=== PATIENT | male | born 1975 | race Hispanic/Latino ===

== ENCOUNTER 2018-05-05 10:02 | Emergency (ER) | payer OTHER ==
[2018-05-05 11:19] LABS: BASOPHILS % (AUTO) 0.7 % (0.0-5.0); EOSINOPHILS % (AUTO) 1.4 % (0.0-8.0); HEMATOCRIT 48.4 % (42-54); LYMPHOCYTES % (AUTO) 18.8 % (21.0-51.0); MEAN CORPUSCULAR HGB CONC 33.7 g/dL (32.0-36.0); MEAN CORPUSCULAR VOLUME 89.2 fL (79-99); MONOCYTES % (AUTO) 8.4 % (3.0-13.0); NEUTROPHILS % (AUTO) 70.7 % (40.0-77.0); PLATELET COUNT (AUTO) 218 K/uL (130-400); RED BLOOD CELL COUNT(AUTO) 5.43 MIL/uL (4.50-6.20); RED CELL DISTRIBUTION WIDTH 13.6 % (11.0-15.5); WHITE BLOOD COUNT (AUTO) 9.9 K/uL (4.8-10.8)
[2018-05-05 11:30] LABS: CREATININE 0.9 mg/dL (0.5-1.5); POTASSIUM 4.3 mmol/L (3.5-5.1)
[2018-05-05 11:35] LABS: ALBUMIN 4.2 g/dL (3.5-5.0); BILIRUBIN,TOTAL 0.6 mg/dL (0.2-1.0); TOTAL PROTEIN, SERUM 8.3 g/dL (6.0-8.3)
[2018-05-05] MEDS ORDERED: ACETAMINOPHEN EXTRA STRENGTH 500 MG TABLET ONE (12:10)
[2018-05-05] MEDS ORDERED: BENZONATATE 100 MG CAPSULE PO ONE (12:10)
[2018-05-05] MEDS ORDERED: ONDANSETRON HCL 4 MG/2 ML VIAL ONE (12:15)
[2018-05-05] MEDS ORDERED: SODIUM CHLORIDE 0.9% 1000ML 1,000 ML IV ONE (12:16)
[2018-05-05] MEDS ORDERED: FAMOTIDINE/PF 20 MG/2 ML VIAL IV ONE (12:16)
== END 2018-05-05 15:16 | disposition home or self-care (01) ==
LOC: EDH 10:02
DX: B34.9 Viral infection, unspecified (principal); R51 Headache; M79.10 Myalgia, unspecified site; H92.09 Otalgia, unspecified ear
CPT/HCPCS: 36415; 71045; 80053; 84484 ×2; 85025; 87804 ×2; 93005 ×2; 96374; 96375; 99284; J2405; J3490; J7030

== ENCOUNTER 2018-08-15 15:16 | Inpatient (IN) | payer SELFPAY ==
[~2018-08-15] VITALS: Ht 170.2 cm; Wt 104.4 kg
[2018-08-15] MEDS ORDERED: ONDANSETRON HCL 4 MG/2 ML VIAL ONE (15:49)
[2018-08-15] MEDS ORDERED: MORPHINE SULFATE 4 MG/1ML SYG ONE (15:49)
[2018-08-15 15:58] LABS: APPEARANCE,URINE Clear (CLEAR); BILIRUBIN,URINE Negative (NEGATIVE); COLOR,URINE Orange (YELLOW); GLUCOSE, URINE (UA) Negative (NEGATIVE); KETONES,URINE Negative (NEGATIVE); LEUKOCYTE ESTERASE ,URINE Negative (NEGATIVE); NITRATE,URINE Negative (NEGATIVE); OCCULT BLOOD,URINE Trace (NEGATIVE); PH,URINE 6.5 (5.0-8.0); PROTEIN,URINE Negative (NEGATIVE)
[2018-08-15 16:07] LABS: CREATININE 0.9 mg/dL (0.5-1.5); POTASSIUM 3.7 mmol/L (3.5-5.1)
[2018-08-15 16:09] LABS: WBC,URINE 0-1 /HPF (0-1)
[2018-08-15 16:12] LABS: ALBUMIN 4.1 g/dL (3.5-5.0); BILIRUBIN,TOTAL 0.8 mg/dL (0.2-1.0); TOTAL PROTEIN, SERUM 8.1 g/dL (6.0-8.3)
[2018-08-15 16:12] LABS: BACTERIA,URINE Rare /HPF (None Seen); SQUAMOUS EPITHELIAL CELL,UR Rare /HPF (0-2)
[2018-08-15 16:13] LABS: MUCUS,URINE Few LPF (None Seen)
[2018-08-15 16:14] LABS: BASOPHILS % (AUTO) 0.8 % (0.0-5.0); EOSINOPHILS % (AUTO) 0.5 % (0.0-8.0); HEMATOCRIT 47.1 % (42-54); LYMPHOCYTES % (AUTO) 17.5 % (21.0-51.0); MEAN CORPUSCULAR HEMOGLOBIN 30.2 pg (27.0-33.0); MEAN CORPUSCULAR HGB CONC 34.3 g/dL (32.0-36.0); MEAN CORPUSCULAR VOLUME 87.9 fL (79-99); MONOCYTES % (AUTO) 10.4 % (3.0-13.0); NEUTROPHILS % (AUTO) 70.8 % (40.0-77.0); PLATELET COUNT (AUTO) 230 K/uL (130-400); RED BLOOD CELL COUNT(AUTO) 5.35 MIL/uL (4.50-6.20); RED CELL DISTRIBUTION WIDTH 14.3 % (11.0-15.5); WHITE BLOOD COUNT (AUTO) 9.2 K/uL (4.8-10.8)
[2018-08-15] MEDS ORDERED: KETOROLAC TROMETHAMINE 15MG/ML ONE (17:42)
[2018-08-15] MEDS ORDERED: ASPIRIN 325 MG TABLET ONE (18:34)
[2018-08-15] MEDS: SODIUM CHLORIDE 0.9% 1000ML 1,000 ML IV SCH (19:01)
[2018-08-15] MEDS ORDERED: MORPHINE SULFATE 2 MG/ML 1ML SYG IV PRN (19:15)
[2018-08-15] MEDS ORDERED: NITROGLYCERIN 0.4 MG SL TAB SL PRN (19:15)
[2018-08-15] MEDS ORDERED: ONDANSETRON HCL 4 MG/2 ML VIAL IV PRN (19:15)
[2018-08-15 19:22] LABS: CHOLESTEROL 99 mg/dL (<200); HDL CHOLESTEROL 81 mg/dL (29-71); LDL DIRECT 24 mg/dL (0-99); LIPASE 166 U/L (114-286); TRIGLYCERIDES 414 mg/dL (30-200)
[2018-08-15] MEDS ORDERED: MORPHINE SULFATE 2 MG/ML 1ML SYG ONE (20:34)
[2018-08-15] MEDS ORDERED: METRONIDAZOLE 500MG/100ML BAG 100 ML ONE (20:34)
[2018-08-15] MEDS ORDERED: METOPROLOL TARTRATE 25 MG TAB ONE (20:34)
[2018-08-15] MEDS ORDERED: FAMOTIDINE/PF 20 MG/2 ML VIAL IV ONE (20:34)
[2018-08-15] MEDS ORDERED: SODIUM CHLORIDE 0.9% 1000ML 1,000 ML IV ONE (20:35)
[2018-08-15] MEDS: METOPROLOL TARTRATE 25 MG TAB PO SCH (21:00)
[2018-08-15] MEDS: FAMOTIDINE/PF 20 MG/2 ML VIAL IV SCH (21:00)
[2018-08-15] MEDS: METRONIDAZOLE 500MG/100ML BAG 100 ML IV SCH (22:00)
[2018-08-16] VITALS (7 sets, daily range): BP systolic 141–161; BP diastolic 89–106
[2018-08-16 00:06] LABS: TROPONIN I 0.06 ng/mL (0.00-0.06)
--- NOTE | 2018-08-16 01:45 | NUR ---
ADMIT PT ADMITTED TO ROOM 331, AAOX3. ASSESSMENT DONE, PLEASE REFER TO CHART. ADMISSION CARE DONE. ADMISSION DATA BASE COMPLETED. CONTINUED IVF FROM ER, REGULATED AT 100CC/HR. PLACED PT ON CLEAR LIQUID DIET. ORIENTED TO ROOM AND UNIT. INSTRUCTED ON STOOL COLLECTION. PT VERBALIZES UNDERSTANDING. IN FOR MORE CARE AND MANAGEMENT. Addendum: 08/16/18 at 0248 by YVONNE PEDERSEN RN RN Amended: Links added.
[2018-08-16 05:50] LABS: TROPONIN I 0.07 ng/mL (0.00-0.06)
[2018-08-16] MEDS: METRONIDAZOLE 500MG/100ML BAG 100 ML IV SCH ×3 (06:17→22:10)
[2018-08-16] MEDS: SODIUM CHLORIDE 0.9% 1000ML 1,000 ML IV SCH ×2 (06:17→15:13)
--- NOTE | 2018-08-16 06:17 | NUR ---
MEDS PT RESTING IN BED. CLAIMS OF MILD PAINS TO HIS ABDOMEN BUT DENIES NEED FOR PAIN MEDICATION AT THIS TIME. DUE MEDS ADMINISTERED. KEPT RESTED AND COMFORTABLE IN BED. FOR MORE CARE.
[2018-08-16] MEDS ORDERED: PHARMACY COMMUNICATION MISC SCH (08:00)
[2018-08-16] MEDS: FAMOTIDINE/PF 20 MG/2 ML VIAL IV SCH ×2 (09:30→20:10)
[2018-08-16] MEDS: ASPIRIN 325 MG TABLET PO SCH (09:30)
[2018-08-16] MEDS: FENOFIBRATE NANOCRYSTALLIZED 48 MG TAB PO SCH (09:30)
[2018-08-16] MEDS: METOPROLOL TARTRATE 25 MG TAB PO SCH ×2 (09:30→20:10)
[2018-08-16] MEDS: ENOXAPARIN SODIUM 40 MG/0.4 ML SYRINGE SQ SCH (09:39)
[2018-08-16 11:31] LABS: TROPONIN I 0.07 ng/mL (0.00-0.06)
[2018-08-16] MEDS ORDERED: MAG HYDROX/AL HYDROX/SIMETH ES 30 ML SUSP UDCUP PO PRN (14:30)
--- NOTE | 2018-08-16 17:32 | NUR ---
DCP CM met with pt discussed dc plans. Pt is independent prior to admission, lives at home with spouse. Denies any equipments/services. Pt feels safe to go back home, still drives, spouse able to assist with transportation and needs as necessary. DC plan to home once stable. CM to cont to follow up. Addendum: 08/16/18 at 1733 by ESAU BELTRAN LVN CM Amended: Links added.
[2018-08-16] MEDS ORDERED: ACETAMINOPHEN 325 MG TAB PO PRN ×2 (22:00)
[2018-08-16] MEDS ORDERED: HYDRALAZINE HCL 20 MG/ML VIAL IV PRN (23:30)
[2018-08-16] MEDS ORDERED: HYDRALAZINE HCL 20 MG/ML VIAL ONE (23:35)
--- NOTE | 2018-08-16 23:45 | NUR ---
High blood pressure Informed Waldo Gomez NP regarding elevated blood pressure. He ordered PRN hydralazine. will monitor patient closely
[2018-08-17 03:10] VITALS: BP 152/92
[2018-08-17 05:14] LABS: BASOPHILS % (AUTO) 0.6 % (0.0-5.0); EOSINOPHILS % (AUTO) 4.9 % (0.0-8.0); HEMATOCRIT 37.9 % (42-54); LYMPHOCYTES % (AUTO) 27.4 % (21.0-51.0); MEAN CORPUSCULAR HEMOGLOBIN 30.4 pg (27.0-33.0); MEAN CORPUSCULAR HGB CONC 34.2 g/dL (32.0-36.0); MEAN CORPUSCULAR VOLUME 89.1 fL (79-99); MONOCYTES % (AUTO) 9.1 % (3.0-13.0); NUCLEATED RED BLOOD CELLS 0.1 % (0.0-0.19); PLATELET COUNT (AUTO) 155 K/uL (130-400); RED BLOOD CELL COUNT(AUTO) 4.25 MIL/uL (4.50-6.20); RED CELL DISTRIBUTION WIDTH 14.1 % (11.0-15.5); WHITE BLOOD COUNT (AUTO) 8.2 K/uL (4.8-10.8)
[2018-08-17] MEDS: SODIUM CHLORIDE 0.9% 1000ML 1,000 ML IV SCH ×2 (05:30→11:01)
[2018-08-17] MEDS: METRONIDAZOLE 500MG/100ML BAG 100 ML IV SCH ×3 (05:30→21:27)
[2018-08-17 08:00] VITALS: BP 151/99
[2018-08-17] MEDS: METOPROLOL TARTRATE 25 MG TAB PO SCH ×2 (09:16→21:27)
[2018-08-17] MEDS: FAMOTIDINE/PF 20 MG/2 ML VIAL IV SCH ×2 (09:16→21:27)
[2018-08-17] MEDS: FENOFIBRATE NANOCRYSTALLIZED 48 MG TAB PO SCH (09:16)
[2018-08-17] MEDS: ASPIRIN 325 MG TABLET PO SCH (09:16)
[2018-08-17] MEDS: ENOXAPARIN SODIUM 40 MG/0.4 ML SYRINGE SQ SCH (09:17)
[2018-08-17 12:00] VITALS: BP 146/90
[2018-08-17 20:00] VITALS: BP_SYST 100; BP_SYST 102; BP_DIAS 121; BP_DIAS 122
[2018-08-18] VITALS: BP 151/101
[2018-08-18 04:00] VITALS: BP 158/97
[2018-08-18 04:45] LABS: BASOPHILS % (AUTO) 0.5 % (0.0-5.0); EOSINOPHILS % (AUTO) 4.7 % (0.0-8.0); HEMATOCRIT 37.8 % (42-54); LYMPHOCYTES % (AUTO) 27.2 % (21.0-51.0); MEAN CORPUSCULAR HEMOGLOBIN 31.4 pg (27.0-33.0); MEAN CORPUSCULAR HGB CONC 35.1 g/dL (32.0-36.0); MEAN CORPUSCULAR VOLUME 89.3 fL (79-99); MONOCYTES % (AUTO) 9.8 % (3.0-13.0); NEUTROPHILS % (AUTO) 57.8 % (40.0-77.0); NUCLEATED RED BLOOD CELLS 0.1 % (0.0-0.19); PLATELET COUNT (AUTO) 136 K/uL (130-400); RED BLOOD CELL COUNT(AUTO) 4.24 MIL/uL (4.50-6.20); RED CELL DISTRIBUTION WIDTH 14.3 % (11.0-15.5); WHITE BLOOD COUNT (AUTO) 8.1 K/uL (4.8-10.8)
[2018-08-18 04:51] LABS: CREATININE 0.8 mg/dL (0.5-1.5); POTASSIUM 3.8 mmol/L (3.5-5.1)
[2018-08-18] MEDS: METRONIDAZOLE 500MG/100ML BAG 100 ML IV SCH ×3 (05:43→22:15)
[2018-08-18 07:00] VITALS: BP 139/87
[2018-08-18] MEDS: SODIUM CHLORIDE 0.9% 1000ML 1,000 ML IV SCH ×2 (07:01→18:00)
[2018-08-18] MEDS: ENOXAPARIN SODIUM 40 MG/0.4 ML SYRINGE SQ SCH (09:20)
[2018-08-18] MEDS: METOPROLOL TARTRATE 25 MG TAB PO SCH ×2 (09:20→22:15)
[2018-08-18] MEDS: ASPIRIN 325 MG TABLET PO SCH (09:20)
[2018-08-18] MEDS: FAMOTIDINE/PF 20 MG/2 ML VIAL IV SCH ×2 (09:20→22:14)
[2018-08-18] MEDS: FENOFIBRATE NANOCRYSTALLIZED 48 MG TAB PO SCH (09:21)
[2018-08-18 11:00] VITALS: BP 135/95
[2018-08-18 16:00] VITALS: BP 147/92
[2018-08-18 20:00] VITALS: BP 145/98
[2018-08-18] MEDS: LACTOBACILLUS RHAMNOSUS GG 1 EACH CAP.SPRINK PO SCH (22:14)
[2018-08-19] VITALS: BP 162/96
[2018-08-19] MEDS: SODIUM CHLORIDE 0.9% 1000ML 1,000 ML IV SCH (03:06)
[2018-08-19 04:00] VITALS: BP 158/94
[2018-08-19 04:47] LABS: HEMATOCRIT 36.9 % (42-54); MEAN CORPUSCULAR HEMOGLOBIN 30.9 pg (27.0-33.0); MEAN CORPUSCULAR HGB CONC 34.6 g/dL (32.0-36.0); MEAN CORPUSCULAR VOLUME 89.4 fL (79-99); PLATELET COUNT (AUTO) 148 K/uL (130-400); RED BLOOD CELL COUNT(AUTO) 4.13 MIL/uL (4.50-6.20); RED CELL DISTRIBUTION WIDTH 14.7 % (11.0-15.5); WHITE BLOOD COUNT (AUTO) 9.3 K/uL (4.8-10.8)
[2018-08-19 05:06] LABS: CREATININE 0.8 mg/dL (0.5-1.5); POTASSIUM 3.9 mmol/L (3.5-5.1)
[2018-08-19] MEDS: METRONIDAZOLE 500MG/100ML BAG 100 ML IV SCH (05:35)
[2018-08-19 07:00] VITALS: BP 170/96
[2018-08-19] MEDS: FENOFIBRATE NANOCRYSTALLIZED 48 MG TAB PO SCH (08:58)
[2018-08-19] MEDS: FAMOTIDINE/PF 20 MG/2 ML VIAL IV SCH (08:58)
[2018-08-19] MEDS: METOPROLOL TARTRATE 25 MG TAB PO SCH (08:58)
[2018-08-19] MEDS: ASPIRIN 325 MG TABLET PO SCH (08:58)
[2018-08-19] MEDS: LACTOBACILLUS RHAMNOSUS GG 1 EACH CAP.SPRINK PO SCH (08:58)
[2018-08-19] MEDS: ENOXAPARIN SODIUM 40 MG/0.4 ML SYRINGE SQ SCH (08:58)
[2018-08-19] MEDS ORDERED: ASPI-1012 PO (09:34)
[2018-08-19] MEDS ORDERED: FENO48TA15 PO (09:34)
[2018-08-19] MEDS ORDERED: METO25 PO (09:34)
[2018-08-19] MEDS ORDERED: METR-172 PO (09:34)
[2018-08-19] MEDS ORDERED: FAMO-136 PO (09:34)
[2018-08-19 11:00] VITALS: BP 123/66
== END 2018-08-19 15:01 | disposition home or self-care (01) | DRG 392 ==
LOC: EDH 15:16 → EDHIP 15:17 → OBSVTOIN 15:17 → 3AH 08-16 00:59 → 3DH 08-18 02:30
PROVIDERS: ADMIT Internal Medicine; ATTEND Internal Medicine
DX: K29.70 Gastritis, unspecified, without bleeding (principal); B96.81 Helicobacter pylori [H. pylori] as the cause of diseases classified elsewhere; K52.9 Noninfective gastroenteritis and colitis, unspecified; E66.01 Morbid (severe) obesity due to excess calories; Z68.36 Body mass index [BMI] 36.0-36.9, adult; E78.1 Pure hyperglyceridemia; K76.0 Fatty (change of) liver, not elsewhere classified; Z88.0 Allergy status to penicillin
CPT/HCPCS: 36415; 74176; 76705; 80048; 80053; 80061; 81001; 82550; 83690; 83874; 84484; 85025; 85027; 86677; 87046; 87177; 87324; 87338; 87507; 93005; G0378; J0360; J1650; J1885; J2270; J2405; J3490; J7030